=== PATIENT | female | born 1960 | race Caucasian/White ===

== ENCOUNTER 2023-12-30 11:03 | Day surgery (SDC) | payer BC, SELFPAY ==
--- NOTE | 2023-12-30 06:27 | W.ANESPRE ---
General Info Date of Service Date Performed: 12/30/23 Height: 5 ft 6.5 in Weight: 72.802 kg Body Mass Index (BMI): 25.4 Surgical Procedure: Operation Date: 12/30/23 11:20 Proposed Procedure Side Surgeon p Gastroscopy Avani Robledo, Meds Allergies and Home Medications Allergies Allergy/AdvReac Type Severity Reaction Status Date / Time Penicillins Allergy Unknown As child Verified 12/30/23 11:23 Home Medication ?Medication ?Instructions ?Recorded omeprazole 20 mg capsule,delayed 20 mg PO HS 11/16/23 release cholecalciferol (vitamin D3) 50 50 mcg PO DAILY 12/12/23 mcg (2,000 unit) capsule Current Visit Medications: Current Medications Generic Name Dose Route Start Last Admin Trade Name Freq PRN Reason Stop Dose Admin Hyoscyamine Sulfate 0.125 mg 12/30/23 11:36 Hyoscyamine 0.125 Mg Sl/Oral/Chew SL 01/29/24 11:35 DIRECTED PRN Ringer's Solution 1,000 mls @ 80 mls/hr 12/30/23 06:00 IV 01/28/24 23:59 INFUSION FAUSTINO Clindamycin Phosphate/Dextrose 600 mg in 50 mls @ 100 mls/hr 12/30/23 06:00 Cleocin In D5w IVPB 12/30/23 16:00 PREOP FAUSTINO IV Miscellaneous Supplies 1 each 12/30/23 06:00 Iv Access IV 01/28/24 23:59 DIRECTED FAUSTINO Ondansetron HCl 4 mg 12/30/23 11:36 Ondansetron 4 Mg/2 Ml Vial IVP 01/29/24 11:35 Q4H PRN PRN Nausea / Vomiting Sodium Chloride 0 ml 12/30/23 06:00 Normal Saline Flush 10 Ml Syr IV 01/28/24 23:59 PRN PRN Sodium Chloride 0 ml 12/30/23 06:00 Normal Saline 10 Ml Vial IJ 01/28/24 23:59 DIRECTED PRN Sterile Water 0 ml 12/30/23 06:00 Water,Injection,Sterile 10 Ml Vial IJ 01/28/24 23:59 DIRECTED PRN PFSH Active Problems Active Problems: Problem Status Onset Code Elevated cholesterol Chronic E78.00 Esophagitis, acute Acute K20.90 GERD (gastroesophageal reflux disease) Chronic K21.9 Surgical History Surgical History Hx of foot surgery History of bilateral knee replacement Hx of hysterectomy Status post rotator cuff repair (~06/2023) [facility] History of esophagogastroduodenoscopy (EGD) (~04/28/21) [facility] Tobacco Smoking/Tobacco Use Status: Never Alcohol Alcohol Intake: current Alcohol intake frequency: a few times a week Substance Use Substance use: Never Substance use type: does not use Vital Signs and Lab Results Vital Signs Most Recent Vital Signs in EMR: Temp Pulse Resp BP Pulse Ox 36.5 C 61 16 103/76 100 12/30/23 11:24 12/30/23 11:24 12/30/23 11:24 12/30/23 11:24 12/30/23 11:24 Lab Results Blood Type / Crossmatch: No Data to Display Complete Blood Count: No Data to Display Complete Metabolic Panel: No Data to Display Liver Function Panel: No Data to Display Coagulation Panel: No Data to Display Cardiac Panel: No Data to Display Arterial Blood Gas: No Data to Display Venous Blood Gas: No Data to Display Pancreas Panel: No Data to Display Thyroid Panel: No Data to Display Infectious Disease: No Data to Display Blood Cultures: No Data to Display Toxicology Panel: No Data to Display Anesthesia Assessment and Plan Anesthesia History Personal History: No History of Anesthesia Complications Family History: No Family History of Anesthesia Complications Exercise Tolerance Exercise Tolerance: Metabolic Equivalents>4 Cardiac & Pulmonary Exam Cardiac Exam: Normal S1/S2 Heart Sounds Pulmonary Exam: Clear Bilateral Breath Sounds Implantable Cardiac Device Does patient have a Pacemaker or an ICD?: No Airway Exam Known Difficult Airway: No Mallampati Class: 2 Mouth Opening: Normal (> 3cm) Thyromental Distance: Greater than 3 cm Neck Range of Motion: Full ROM Neck Circumference: Normal Teeth Condition: Normal Dentition ASA Classification ASA Score: ASA 2 Emergency Case?: No NPO Status NPO Status: NPO Clears >2 hours, Solids >8 hours Anesthesia Plan Resuscitation Status: Full Code Anesthesia Technique: General Anesthesia Airway Planned: Natural Airway Monitors Used: Standard Monitors Preoperative Comments:: 63 yo female with GERD for EGD. Sig PMHx: GERD (omeprazole).
[2023-12-30 11:24] VITALS: BP 103/76; PULSE 61; RESP 16; TEMP 36.5; O2SAT 100
[2023-12-30 11:36] VITALS: BMI 25.4
[2023-12-30] MEDS: Lactated Ringers 1,000 ML 80 ML IV (11:45)
[2023-12-30] MEDS: CLINDAMYCIN 600 MG/50 ML BAG 100 MG IVPB (12:00)
--- NOTE | 2023-12-30 12:04 | STOM_PTH ---
PATIENT: Deshawn Asencio LOC: [facility] U#:[id number] AGE/SX: 63/F ROOM: RE12/30/[address]: Avani Robledo : 1960 BED: DIS: 12/30/2023 SPEC #: [id number] RECD: 12/30/23 13:00 STATUS: ELMER RENan #: [id number] REDD: 12/30/23 12:[address]: Avani Robledo DEPT: Surgical Specimen RECD BY: Deedee Pineda ENTERED: 12/30/23 13:01 SP TYPE: STOMACH OTHR DR: Natividad Galvan Tissues: 1 - BIOPSY BOWEL 2 - BIOPSY BOWEL 3 - STOMACH BIOPSY 4 - STOMACH BIOPSY 5 - ESOPHAGUS BIOPSY 6 - ESOPHAGUS BIOPSY Procedures: GROSS AND MICRO LEVEL 4 Comments: [id number]
[2023-12-30 12:21] VITALS: BP 114/82; PULSE 47; RESP 14; TEMP 36; O2SAT 99
--- NOTE | 2023-12-30 12:50 | W.ANESPOSTOP ---
Postoperative Evaluation Date, Time and Location Date Performed: 12/30/23 Time Performed: 12:50 Patient Location: Day Surgery Unit Vital Signs Most Recent Imported Vital Signs: Most Recent Vital Signs Temp Pulse Resp BP Pulse Ox 36.0 C L 47 L 14 114/82 99 12/30/23 12:21 12/30/23 12:21 12/30/23 12:21 12/30/23 12:21 12/30/23 12:21 Pain Score Most Recent Pain Score: Most Recent Pain Score Pain Level 0 12/30/23 12:21 Assessment Mental Status: Awake (Alert & Oriented to Patient Baseline) Airway and Respiratory Function: Patent airway with normal (patient baseline) respiratory exam Cardiovascular Function: Hemodynamically Stable Hydration Status: Adequately Hydrated Nausea & Vomiting: No Nausea or Vomiting Pain: Pt. Denies Any Pain Peripheral Nerve Block: Patient did not receive a nerve block
--- NOTE | 2023-12-30 12:50 | W.PM.ENDDOP ---
Date of service: 12/30/23 Time of Service: 12:50 Endoscopy Report DATE OF PROCEDURE: 12/30/23 PRE-OP DIAGNOSIS: Reflux pain POST-OP DIAGNOSIS: same (Bile reflux gastritis and small hiatal hernia esophagitis-mild) SURGEON: Avani Robledo ANESTHESIA TYPE: General:No Airway ESTIMATED BLOOD LOSS: 1 PATHOLOGY: other COMPLICATIONS: None DISPOSITION: same day PROCEDURE DESCRIPTION: Informed consent was obtained from the pt; explaining the benefits and Risks: bleeding, infections, perforations {which could require surgery or antibiotics and prolonged hospital stay}, or ostomy, and complications of anaesthesia, fernando aspiration). The patient was take to the procedure room and placed in a supine position. Monitors were applied and a time out was done. The patients name, date of , procedure type, allergies to medications and metal in their body was reviewed. A bite block was placed and the patient was sedated. Once sedated and comfortable an Olympus gastroscope (see RN notes for scope #) was advanced through the oropharynx which was grossly normal, and passed into the esophagus. The proximal and mid-esophagus were normal. The distal esophagus does not show any: dilation/strictures/varices/erosions or ulcers/bleeding noted. There is some mild esophagitis noted. There is no signs of any Quiles's. the scope was advanced into the stomach and through the pylorus into the proximal jejunum. A bx is taken for celiac Dx . The duodenum was noted to be normal. Biopsies were done of the duodenal bulb.. The scope was retracted back into the stomach and biopsies were taken of the antrum. There were no gastritis/gastropathy/ ulcers/masses noted. The scope was retroflexed. The cardia and fundus were noted to be normal. There is a small/<1cm/patulous hiatus noted/ hiatal hernia noted. The scope was retracted back into the esophagus and biopsies were done of the GE junction (in all 4 quadrants) and distal esophagus (2cm above the GE junction) to rule out Quiles's. All specimens are retrieved and no bleeding was noted. The Z line was irregular. The scope was removed and the patient was woken up and taken back to [facility] in stable condition.
[2023-12-30 12:52] VITALS: BP 123/88; PULSE 42; RESP 16; TEMP 36.1; O2SAT 100
--- NOTE | 2023-12-30 13:50 | W.PM.DSUDISC ---
Date of service: 12/30/23 Time of Service: 13:50 Discharge Plan Disposition Patient Disposition: Home Condition: Good Discharge Details Reason For Visit: stomach scope Attending Provider: Avani Robledo Primary Care Provider: Natividad Galvan Home Meds and New Rx's Prescriptions: New pantoprazole [Protonix] 40 mg tablet,delayed release (DR/EC) 40 mg PO DAILY Qty: 90 4RF Discontinued cholecalciferol (vitamin D3) 50 mcg (2,000 unit) capsule 50 mcg PO DAILY No Action omeprazole 20 mg capsule,delayed release(DR/EC) 20 mg PO HS Discharge Instructions Additional Instructions: Post EGD Instruction ?You had anesthesia for your EGD/stomach scope today.? For your safety, please do the following for the next twenty-four (24) hours: Do Not operate a motor vehicle (car, truck, motorcycle, etc.) Do Not drink alcoholic beverages or use any recreational drugs for the first 24 hours or while taking pain medications. The medications in your body may have a reaction that can be dangerous. Do Not make any important decisions or sign any important papers You have just had a gastroscopy (EGD) or upper GI tract examination. It is important for your smooth recovery that you carefully follow the recommendations below. Do not hesitate to call if any questions should arise about your anesthesia, condition, or care. -Symptoms you may experience during the next 24 hours: ?1. Mild abdominal pain or excessive gas or a bloated feeling which improves with rest, liquids, eating? slightly, and walking as tolerated. 2. Drowsiness and/or forgetfulness because of the medications you were given. ?3. Throat numbness for about 1 hour. 4. A sore throat which you can treat with throat lozenges or by gargling with salt water 4-5 times a day. 5. Redness at the site of your IV which you can treat with warm compresses. SPECIAL INSTRUCTIONS: 1. You may resume your previous diet in one hour. We recommend a light meal to start, then progress as tolerated. 2. Restart regular medications in one hour. 3. No aspirin or non-steroidal containing medication for three days. 4. No lifting over 20 pounds or strenuous activity for the first 24 hours after your procedure. After 24 hours there are no restrictions on your activity, but you may feel fatigued for a few days. Findings: Esophagitis Hiatal hernia -Medications: Protonix -Continue to follow lifestyle modifications: No alcohol, tobacco products, Aspirin or NSAID's (ibuprofen, Motrin, Naprosyn, aleve, etc).? Try to limit/avoid:? soda pop/any carbonated beverages, caffeine (including tea & chocolate), and acidic foods, (tomatoes, citrus, onions, peppermints) spicy or fried/fatty foods. Do not lie down for 30 minutes after eating, and do not eat 2 hours prior to bedtime. Avoid wearing tight fitting clothing/ belts. Follow up: -My office will send a letter with the results of your biopsy?s in 2-3wks time. Call the office at [phone] (Office) or [phone] (Hospital), or go to the ER right away if you notice any of the followin. Vomiting blood and /or ?coffee ground? material. ?2. Worsening of abdominal pain or cramping. ?3. Trouble with breathing, cough, and/or fever (temperature above 101.5 F). 4. Increasing pain with swallowing. ?5. Chest pain. 6. Any new symptoms. 7. Worsening of the redness at the IV site Stand Alone Forms: Anesthesia Discharge Inst., Darrion Dickens ([facility]) Activity:: See above Diet:: See above Discharge Orders Discharge Orders: Discharge Order (Routine); Ordered 12/30/23 Ordered By: Avani Robledo DS: Diagnosis Discharge Diagnosis (1) GERD (gastroesophageal reflux disease): Status: Chronic (2) Esophagitis, acute: Status: Acute
== END 2023-12-30 14:02 | disposition home or self-care (01) ==
PROVIDERS: PCP Family Medicine; Visit Provider Surgery
PROC: 0DJ68ZZ Inspection of Stomach, Via Natural or Artificial Opening Endoscopic (ICD-10-PCS; CPT 43235; principal; 2023-12-30 11:15)
DX: K21.9 Gastro-esophageal reflux disease without esophagitis (principal); K20.90 Esophagitis, unspecified without bleeding; K44.9 Diaphragmatic hernia without obstruction or gangrene; K63.89 Other specified diseases of intestine; K29.70 Gastritis, unspecified, without bleeding; K31.A0 Gastric intestinal metaplasia, unspecified
CPT/HCPCS: 43239; 88305; J0737; J2405; J2704